=== PATIENT | male | born 1960 | race African-American/Black ===

== ENCOUNTER 2022-07-09 05:55 | Emergency (ER) | payer BC ==
[2022-07-09 06:19] VITALS: BMI 28.8
[2022-07-09 07:12] LABS: BASO % 0.7 % (0-2.0); EOS % 1.7 % (0-4.5); HEMATOCRIT 50.1 % (35.4-49); HEMOGLOBIN 16.2 GM/dL (11.7-16.9); LYMPH % 26.6 % (8-40); MCH 30.6 pg (25.7-33.7); MCHC 32.2 g/dl (32.0-35.9); MEAN CELL VOLUME 94.8 fl (80-96); MEAN PLT VOLUME 8.7 fl (7.5-11.1); MONO % 6.7 % (3.8-10.2); NEUT % 64.3 % (42.8-82.8); PLATELET COUNT 221 10^3/uL (134-434); RBC 5.29 M/mm3 (4.00-5.60); RDW 13.3 % (11.9-15.9)
[2022-07-09 07:54] LABS: ALBUMIN 4.2 g/dl (3.4-5.0); BLOOD UREA NITROGEN 17.4 mg/dL (7-18)
[2022-07-09 07:58] LABS: CREATININE 1.2 mg/dL (0.55-1.3)
[2022-07-09 07:59] LABS: BILIRUBIN,TOTAL 0.4 mg/dL (0.2-1); TOT PROT 7.7 g/dl (6.4-8.2)
[2022-07-09 08:07] VITALS: RESP 20
[2022-07-09 10:22] VITALS: BP 135/77; PULSE 77; TEMP 97.9
== END 2022-07-09 09:40 | disposition home or self-care (01) ==
LOC: JER 05:55
DX: R06.00 Dyspnea, unspecified (principal)
CPT/HCPCS: 0241U-QW; 36415; 71045-TC-FY; 80053; 84484; 85025; 85379; 93005; 93010; 99285-25